=== PATIENT | female | born 1935 | race Two or more races ===

== ENCOUNTER 2020-11-18 04:03 | Day surgery (SDC) | payer OTHER ==
[2020-11-16 12:15] VITALS: BMI 34.2
[2020-11-18 08:14] LABS: HEMATOCRIT 39.3 % (32.4-45.2); HEMOGLOBIN 12.6 GM/dL (10.7-15.3); MCH 28.7 pg (25.7-33.7); MCHC 32.1 g/dl (32.0-36.0); MEAN CELL VOLUME 89.4 fl (80-96); MEAN PLT VOLUME 7.3 fl (7.5-11.1); PLATELET COUNT 277 K/MM3 (134-434); RDW 17.9 % (11.6-15.6); WHITE BLOOD COUNT 7.4 K/mm3 (4.0-10.0)
[2020-11-18 08:28] LABS: INR 1.02 (0.83-1.09); PROTHROMBIN TIME (PATIENT) 12.5 SEC (9.7-13.0)
[2020-11-18 08:33] LABS: ALBUMIN 3.3 g/dl (3.4-5.0); BLOOD UREA NITROGEN 27.5 mg/dL (7-18); CALCIUM 8.1 mg/dL (8.5-10.1)
[2020-11-18 08:37] LABS: BILIRUBIN,TOTAL 0.6 mg/dL (0.2-1); CREATININE 1.4 mg/dL (0.55-1.3); TOT PROT 7.2 g/dl (6.4-8.2)
[2020-11-18] MEDS ORDERED: LIDOCAINE HCL/PF 2% SDV 5ML VIAL ONE (12:32)
[2020-11-18] MEDS ORDERED: PROPOFOL 20 ML ONE (12:32)
[2020-11-18] MEDS ORDERED: MIDAZOLAM HCL 2 MG/2 ML SINGLE DOSE VIAL ONE (12:32)
[2020-11-18] MEDS ORDERED: KETOROLAC TROMETHAMINE 30 MG/1 ML VIAL ONE (12:32)
[2020-11-18] MEDS ORDERED: DEXAMETHASONE SOD PHOSPHATE 4 MG/1 ML VIAL ONE (12:32)
[2020-11-18] MEDS ORDERED: ONDANSETRON 4 MG/2 ML VIAL IVPUSH PRN (13:36)
[2020-11-18] MEDS ORDERED: IBUPROFEN 400 MG TABLET (FP) PO PRN (13:41)
[2020-11-18] MEDS ORDERED: ACETAMINOPHEN 325 MG TABLET (FP) PO PRN (13:41)
[2020-11-18] MEDS ORDERED: LACTATED RINGERS SOLUTION 1,000 ML IV SCH (13:45)
[2020-11-18] MEDS: LABETALOL HCL 5 MG/1 ML (100MG/20 ML VIAL) IVPUSH ONE ×2 (15:00→15:15)
[2020-11-18] MEDS ORDERED: LABETALOL HCL 5 MG/1 ML (100MG/20 ML VIAL) IVPUSH ONE (15:21)
[2020-11-18] MEDS ORDERED: dilTIAZem HCL 125 MG/25 ML - 25 ML VIAL ONE (15:34)
[2020-11-18] MEDS ORDERED: dilTIAZem HCL 50 MG/10 ML - 10 ML VIAL IVPUSH PRN ×2 (15:35→15:54)
[2020-11-18 18:18] VITALS: TEMP 97
[2020-11-18 18:26] VITALS: BP 168/100; PULSE 88
== END 2020-11-18 17:30 | disposition home or self-care (01) ==
LOC: JASU-SURG 04:03
PROVIDERS: ATTEND Specialist
PROC: 0UB98ZX Excision of Uterus, Via Natural or Artificial Opening Endoscopic, Diagnostic (ICD-10-PCS; principal; 2020-11-18 10:00)
PROC: 0UDB7ZX Extraction of Endometrium, Via Natural or Artificial Opening, Diagnostic (ICD-10-PCS; 2020-11-18 10:00)
DX: N95.0 Postmenopausal bleeding (principal); N84.0 Polyp of corpus uteri; E11.9 Type 2 diabetes mellitus without complications
CPT/HCPCS: 36415; 80053; 85027; 85610; 86850; 86900; 86901; 88305-TC; 94760

== ENCOUNTER 2021-02-09 15:25 | Inpatient (IN) | payer OTHER ==
[2021-02-09] MEDS ORDERED: LIDOCAINE 1%/EPI 1:100000 (20 ML MULTI DOSE VIAL) ONE (16:58)
[2021-02-09] MEDS ORDERED: LIDOCAINE HCL 1%, 10 MG/ML (20ML VIAL) ONE (16:58)
[2021-02-09 19:49] LABS: BASO % 1.2 % (0-2.0); EOS % 0.8 % (0-4.5); HEMATOCRIT 42.4 % (32.4-45.2); HEMOGLOBIN 13.9 GM/dL (10.7-15.3); LYMPH % 17.9 % (8-40); MCH 28.8 pg (25.7-33.7); MCHC 32.7 g/dl (32.0-36.0); MEAN PLT VOLUME 7.1 fl (7.5-11.1); MONO % 7.9 % (3.8-10.2); NEUT % 72.2 % (42.8-82.8); PLATELET COUNT 309 10^3/uL (134-434); RBC 4.82 M/mm3 (3.60-5.2); RDW 17.5 % (11.6-15.6); WHITE BLOOD COUNT 9.3 K/mm3 (4.0-10.0)
[2021-02-09 20:01] LABS: INR 2.57 (0.83-1.09); PROTHROMBIN TIME (PATIENT) 30.8 SEC (9.7-13.0)
[2021-02-09 20:18] LABS: BLOOD UREA NITROGEN 23.1 mg/dL (7-18); CALCIUM 8.4 mg/dL (8.5-10.1)
[2021-02-09 20:19] LABS: ALBUMIN 3.2 g/dl (3.4-5.0)
[2021-02-09 20:21] LABS: CREATININE 1.5 mg/dL (0.55-1.3)
[2021-02-09 20:22] LABS: BILIRUBIN,TOTAL 0.5 mg/dL (0.2-1); TOT PROT 7.4 g/dl (6.4-8.2)
[2021-02-10 04:41] VITALS: BMI 33.5
[2021-02-10 07:13] LABS: EOS % 0.9 % (0-4.5); HEMATOCRIT 41.8 % (32.4-45.2); HEMOGLOBIN 13.7 GM/dL (10.7-15.3); LYMPH % 20.3 % (8-40); MCH 28.9 pg (25.7-33.7); MCHC 32.7 g/dl (32.0-36.0); MEAN CELL VOLUME 88.4 fl (80-96); MONO % 9.4 % (3.8-10.2); NEUT % 68.4 % (42.8-82.8); PLATELET COUNT 256 10^3/uL (134-434); RBC 4.72 M/mm3 (3.60-5.2); RDW 17.4 % (11.6-15.6); WHITE BLOOD COUNT 9.6 K/mm3 (4.0-10.0)
[2021-02-10 07:50] LABS: ALBUMIN 3.2 g/dl (3.4-5.0); CALCIUM 8.4 mg/dL (8.5-10.1)
[2021-02-10 07:53] LABS: CREATININE 1.4 mg/dL (0.55-1.3)
[2021-02-10 07:54] LABS: BILIRUBIN,TOTAL 0.6 mg/dL (0.2-1)
[2021-02-10 07:58] LABS: BLOOD UREA NITROGEN 23.3 mg/dL (7-18)
[2021-02-10] MEDS: metoPROLOL SUCCINATE 25 MG TAB.SR.24H (FP) PO SCH (09:16)
[2021-02-10] MEDS: ALLOPURINOL 100 MG TABLET (FP) PO SCH (09:17)
[2021-02-10] MEDS: FUROSEMIDE 20 MG TABLET (FP) PO SCH (09:17)
[2021-02-10] MEDS: FERROUS SO4 325 MG TABLET (FP) PO SCH (09:17)
[2021-02-10] MEDS ORDERED: RIVAROXABAN 20 MG TABLET PO SCH (18:00)
[2021-02-11 07:12] LABS: BASO % 1.2 % (0-2.0); EOS % 1.1 % (0-4.5); HEMATOCRIT 39.9 % (32.4-45.2); HEMOGLOBIN 13.1 GM/dL (10.7-15.3); LYMPH % 19.2 % (8-40); MCHC 32.8 g/dl (32.0-36.0); MEAN CELL VOLUME 88.5 fl (80-96); MEAN PLT VOLUME 7.1 fl (7.5-11.1); MONO % 10.5 % (3.8-10.2); PLATELET COUNT 235 10^3/uL (134-434); RBC 4.51 M/mm3 (3.60-5.2); RDW 17.7 % (11.6-15.6); WHITE BLOOD COUNT 7.7 K/mm3 (4.0-10.0)
[2021-02-11 07:32] LABS: CALCIUM 8.3 mg/dL (8.5-10.1)
[2021-02-11 07:36] LABS: BILIRUBIN,TOTAL 0.5 mg/dL (0.2-1); CREATININE 1.3 mg/dL (0.55-1.3); TOT PROT 6.7 g/dl (6.4-8.2)
[2021-02-11] MEDS: metoPROLOL SUCCINATE 25 MG TAB.SR.24H (FP) PO SCH (10:17)
[2021-02-11] MEDS: PANTOPRAZOLE 40 MG TABLET PO SCH (10:17)
[2021-02-11] MEDS: FERROUS SO4 325 MG TABLET (FP) PO SCH (10:17)
[2021-02-11] MEDS: FUROSEMIDE 20 MG TABLET (FP) PO SCH (10:17)
[2021-02-11] MEDS: ALLOPURINOL 100 MG TABLET (FP) PO SCH (10:18)
[2021-02-11] MEDS: VALSARTAN 80 MG TABLET PO SCH (13:16)
[2021-02-11] MEDS ORDERED: PT OWN MED DRAWER 7, Y5N ONE ×3 (14:33→17:32)
[2021-02-12] MEDS ORDERED: amLODIPine BESYLATE 2.5 MG TABLET (FP) PO ONE (02:15)
[2021-02-12] MEDS: VALSARTAN 80 MG TABLET PO SCH ×2 (05:16→09:13)
[2021-02-12] MEDS: ALLOPURINOL 100 MG TABLET (FP) PO SCH (09:12)
[2021-02-12] MEDS: PANTOPRAZOLE 40 MG TABLET PO SCH (09:13)
[2021-02-12] MEDS: FUROSEMIDE 20 MG TABLET (FP) PO SCH (09:13)
[2021-02-12] MEDS: FERROUS SO4 325 MG TABLET (FP) PO SCH (09:14)
[2021-02-12] MEDS ORDERED: PT OWN MED DRAWER 7, Y5N ONE ×2 (14:06→20:46)
[2021-02-12] MEDS ORDERED: VALSARTAN 80 MG TABLET PO SCH (15:27)
[2021-02-13] MEDS: FERROUS SO4 325 MG TABLET (FP) PO SCH (09:06)
[2021-02-13] MEDS: FUROSEMIDE 20 MG TABLET (FP) PO SCH (09:06)
[2021-02-13] MEDS: ALLOPURINOL 100 MG TABLET (FP) PO SCH (09:06)
[2021-02-13] MEDS: PANTOPRAZOLE 40 MG TABLET PO SCH (09:06)
[2021-02-13 14:40] VITALS: BP 144/71; PULSE 95; TEMP 97.5
[2021-02-13] MEDS ORDERED: POLYETHYLENE GLYCOL (HEALTHYLAX) 3350 17 GM PACKET PO SCH (15:15)
[2021-02-13] MEDS ORDERED: RIVAROXABAN 20 MG TABLET PO SCH (18:00)
== END 2021-02-13 17:26 | disposition home or self-care (01) | DRG 914 ==
LOC: JER 15:25 → JERBED 22:20 → OBSVTOIN 23:39 → J4W 02-10 03:40
PROVIDERS: ADMIT Internal Medicine; ATTEND Internal Medicine
PROC: 0HQ0XZZ Repair Scalp Skin, External Approach (ICD-10-PCS; principal; 2021-02-10)
DX: S09.90XA Unspecified injury of head, initial encounter (principal); N17.9 Acute kidney failure, unspecified; I48.11 Longstanding persistent atrial fibrillation; S01.81XA Laceration without foreign body of other part of head, initial encounter; W01.0XXA Fall on same level from slipping, tripping and stumbling without subsequent striking against object, initial encounter; Y93.89 Activity, other specified; Y92.009 Unspecified place in unspecified non-institutional (private) residence as the place of occurrence of the external cause; Y99.8 Other external cause status; I10 Essential (primary) hypertension; I48.91 Unspecified atrial fibrillation; Z79.01 Long term (current) use of anticoagulants; E78.5 Hyperlipidemia, unspecified; M10.9 Gout, unspecified; D64.9 Anemia, unspecified; G20 Parkinson's disease
CPT/HCPCS: 36415; 70450-TC; 70486-TC; 70551-TC; 72125-TC; 76775-TC; 80053; 82550; 82553; 84484; 85025; 85610; 93005; 93010; 93306-TC; 93880-TC; 97116-GP; 97162-GP; 99285-25; C9803; G0378; U0003; U0005

== ENCOUNTER 2021-09-14 15:25 | Emergency (ER) | payer OTHER ==
[2021-09-14] MEDS ORDERED: SODIUM CHLORIDE 1,000 ML IV SCH (15:45)
[2021-09-14] MEDS ORDERED: levETIRAcetam 500 MG/5 ML INJECTION VIAL IVPB ONE ×2 (15:57→16:13)
[2021-09-14] MEDS ORDERED: LABETALOL HCL 5 MG/1 ML (100MG/20 ML VIAL) IVPUSH ONE (16:05)
[2021-09-14 16:09] VITALS: TEMP 98.9; BMI 35.2
[2021-09-14] MEDS ORDERED: HUM PROTHROMBIN CPLX(PCC)4FACT 1,000 UNIT/40 ML VIAL IV ONE (16:11)
[2021-09-14] MEDS ORDERED: LABETALOL HCL 5 MG/1 ML (200MG/40ML VIAL) IVPB ONE (16:27)
[2021-09-14 16:40] LABS: BASO % 1.2 % (0-2.0); EOS % 1.5 % (0-4.5); HEMATOCRIT 45.6 % (32.4-45.2); HEMOGLOBIN 14.9 GM/dL (10.7-15.3); MCHC 32.7 g/dl (32.0-36.0); MEAN CELL VOLUME 95.1 fl (80-96); MEAN PLT VOLUME 7.6 fl (7.5-11.1); MONO % 12.5 % (3.8-10.2); NEUT % 60.8 % (42.8-82.8); PLATELET COUNT 292 10^3/uL (134-434); RDW 16.6 % (11.6-15.6); WHITE BLOOD COUNT 6.2 K/mm3 (4.0-10.0)
[2021-09-14] MEDS ORDERED: [UNRECOGNIZED DRUG - OTHER] IVPB ONE (17:00)
[2021-09-14] MEDS ORDERED: HUM PROTHROMBIN CPLX IVPB ONE (17:00)
[2021-09-14] MEDS ORDERED: HUM PROTHROMBIN CPLX IVPB SCH (17:00)
[2021-09-14] MEDS ORDERED: [UNRECOGNIZED DRUG - OTHER] IVPB SCH (17:00)
[2021-09-14 17:04] LABS: CHLORIDE 102 mmol/L (98-107); SODIUM 130 mmol/L (136-145)
[2021-09-14 17:07] LABS: ALBUMIN 2.7 g/dl (3.4-5.0); CO2 27 mmol/L (21-32)
[2021-09-14 17:08] LABS: BLOOD UREA NITROGEN 28.2 mg/dL (7-18); GLUCOSE,RANDOM 140 mg/dL (74-106)
[2021-09-14 17:10] LABS: CREATININE 1.4 mg/dL (0.55-1.3)
[2021-09-14 17:11] LABS: CHOLESTEROL 97 mg/dL (50-200); TRIGLYCERIDES 135 mg/dL (0-150)
[2021-09-14 17:12] LABS: LDL CHOLESTEROL (ONLY SJRH) 49 mg/dL (5-100); TOT PROT 7.6 g/dl (6.4-8.2)
[2021-09-14 17:13] LABS: BILIRUBIN,TOTAL 0.8 mg/dL (0.2-1); HDL CHOLESTEROL 33 mg/dL (40-60)
[2021-09-14 17:14] VITALS: BP 140/98; PULSE 103
[2021-09-14 17:14] LABS: ALK PHOS 66 U/L (45-117)
[2021-09-14 17:39] LABS: ANION GAP 1 MMOL/L (8-16); SGOT/AST 97 U/L (15-37); SGPT/ALT 25 U/L (13-61)
== END 2021-09-14 18:00 | disposition short-term general hospital (02) ==
LOC: JER 15:25
PROC: 3E033GC Introduction of Other Therapeutic Substance into Peripheral Vein, Percutaneous Approach (ICD-10-PCS; principal; 2021-09-14)
PROC: 3E033GC Introduction of Other Therapeutic Substance into Peripheral Vein, Percutaneous Approach (ICD-10-PCS; 2021-09-14)
PROC: 3E033GC Introduction of Other Therapeutic Substance into Peripheral Vein, Percutaneous Approach (ICD-10-PCS; 2021-09-14)
PROC: 3E033GC Introduction of Other Therapeutic Substance into Peripheral Vein, Percutaneous Approach (ICD-10-PCS; 2021-09-14)
DX: I61.9 Nontraumatic intracerebral hemorrhage, unspecified (principal)
CPT/HCPCS: 36415; 70450-TC; 80053; 80061; 82550; 82553; 82962; 83036; 84484; 85025; 93005; 93010; 96374; 96375; 99285-25; J7168

== ENCOUNTER 2021-10-13 12:28 | Inpatient (IN) | payer OTHER ==
[2021-10-13 13:58] LABS: ARTERIAL BLD GAS O2 SATURATION 96.9 % (95-98); ARTERIAL BLOOD GAS BASE EXCESS -1.1 mmol/L (-2-2); ARTERIAL BLOOD GAS PO2 84.3 mmHg (80-100); ARTERIAL BLOOD GAS pH 7.458 (7.350-7.450)
[2021-10-13 14:01] LABS: ALLENS TEST POSITIVE
[2021-10-13 14:10] LABS: BASO % 0.5 % (0-2.0); HEMATOCRIT 27.3 % (32.4-45.2); HEMOGLOBIN 8.8 GM/dL (10.7-15.3); LYMPH % 12.7 % (8-40); MCH 33.7 pg (25.7-33.7); MCHC 32.3 g/dl (32.0-36.0); MEAN CELL VOLUME 104.3 fl (80-96); MEAN PLT VOLUME 7.6 fl (7.5-11.1); MONO % 6.9 % (3.8-10.2); NEUT % 79.9 % (42.8-82.8); PLATELET COUNT 333 10^3/uL (134-434); RBC 2.62 M/mm3 (3.60-5.2); RDW 20.7 % (11.6-15.6); WHITE BLOOD COUNT 8.5 K/mm3 (4.0-10.0)
[2021-10-13 14:13] LABS: INR 1.46 (0.83-1.09); PROTHROMBIN TIME (PATIENT) 16.9 SEC (9.7-13.0)
[2021-10-13 14:16] LABS: ACTIVATED PTT 26.7 SECONDS (25.2-36.5)
[2021-10-13 14:19] LABS: CHLORIDE 106 mmol/L (98-107); SODIUM 137 mmol/L (136-145)
[2021-10-13 14:23] LABS: ANION GAP 7 MMOL/L (8-16); BLOOD UREA NITROGEN 63.3 mg/dL (7-18); CO2 25 mmol/L (21-32); GLUCOSE,RANDOM 211 mg/dL (74-106)
[2021-10-13 14:24] LABS: ALBUMIN 2.2 g/dl (3.4-5.0); CALCIUM 7.7 mg/dL (8.5-10.1)
[2021-10-13 14:26] LABS: SGPT/ALT 54 U/L (13-61)
[2021-10-13 14:27] LABS: CREATININE 1.2 mg/dL (0.55-1.3); SGOT/AST 36 U/L (15-37)
[2021-10-13 14:28] LABS: BILIRUBIN,TOTAL 0.7 mg/dL (0.2-1)
[2021-10-13 14:29] LABS: ALK PHOS 54 U/L (45-117)
[2021-10-13] MEDS ORDERED: PANTOPRAZOLE SODIUM 40 MG VIAL IVPUSH ONE (14:54)
[2021-10-13 15:05] LABS: ANISOCYTOSIS 2+; MACROCYTOSIS 2+
[2021-10-13] MEDS ORDERED: SODIUM CHLORIDE 250 ML IV STA (15:29)
[2021-10-13] MEDS ORDERED: PANTOPRAZOLE SODIUM 40 MG VIAL ONE (15:39)
[2021-10-13] MEDS ORDERED: PATIENT'S OWN MEDICATION (NON-FORMULARY) (Acetaminophen [Acetaminophen] 325 MG Capsule) GT PRN (15:53)
[2021-10-13] MEDS: SODIUM CHLORIDE 1,000 ML IV SCH (16:04)
[2021-10-13 16:51] LABS: EPI CELLS 5 /uL (0-25.1); HYALINE CASTS 1 /uL (0-3.1); URINE APPEARANCE CLEAR; URINE BACTERIA 1272 /uL (0-1359); URINE BILIRUBIN NEGATIVE (NEGATIVE); URINE COLOR YELLOW; URINE GLUCOSE (UA) NEGATIVE (NEGATIVE); URINE KETONE NEGATIVE (NEGATIVE); URINE LEUK ESTERASE TRACE (NEGATIVE); URINE NITRITE NEGATIVE (NEGATIVE); URINE PROTEIN TRACE (NEGATIVE); URINE RBC 667 /uL (0-23.9); URINE WBC 37 /uL (0-25.8)
[2021-10-13] MEDS: INSULIN SLIDING SCALE (NOVOLOG) 1 VIAL SQ SCH ×2 (18:30→22:00)
[2021-10-13] MEDS: OXYBUTYNIN CHLORIDE 5 MG TABLET NGT SCH (21:55)
[2021-10-13] MEDS: APIXABAN 5 MG TABLET GT SCH (21:55)
[2021-10-13] MEDS: CARBIDOPA/LEVODOPA 25/100 TABLET (FP) GT SCH (21:55)
[2021-10-13] MEDS: ALLOPURINOL 100 MG TABLET (FP) GT SCH (21:55)
[2021-10-13] MEDS: MUPIROCIN 2% TOPICAL OINTMENT FOR DECOLONIZATION NS SCH (21:56)
[2021-10-13] MEDS: CARVEDILOL 25 MG TABLET (FP) GT SCH (21:56)
[2021-10-13] MEDS ORDERED: APIXABAN 5 MG TABLET GT SCH (22:00)
[2021-10-13] MEDS ORDERED: CHLORHEXIDINE GLUCONATE 4% CLEANSER FOR DECOLONIZATION TP SCH (22:00)
[2021-10-13] MEDS ORDERED: APIXABAN 5 MG TABLET PO SCH (22:00)
[2021-10-13] MEDS ORDERED: CARVEDILOL 25 MG TABLET (FP) GT SCH (22:00)
[2021-10-14] MEDS: CARBIDOPA/LEVODOPA 25/100 TABLET (FP) GT SCH ×3 (05:17→23:16)
[2021-10-14] MEDS: INSULIN SLIDING SCALE (NOVOLOG) 1 VIAL SQ SCH ×4 (06:29→23:17)
[2021-10-14 06:44] LABS: ARTERIAL BLOOD GAS BASE EXCESS -2.4 mmol/L (-2-2); ARTERIAL BLOOD GAS PO2 87.9 mmHg (80-100); ARTERIAL BLOOD GAS pH 7.431 (7.350-7.450)
[2021-10-14 06:45] LABS: ALLENS TEST POSITIVE
[2021-10-14 07:21] LABS: PHOSPHOROUS 3.7 mg/dL (2.5-4.9)
[2021-10-14] MEDS ORDERED: ACETAMINOPHEN 650 MG/20.3 ML ORAL SOLUTION (CUPS) GT PRN (08:47)
[2021-10-14] MEDS: MUPIROCIN 2% TOPICAL OINTMENT FOR DECOLONIZATION NS SCH (09:19)
[2021-10-14] MEDS: CARVEDILOL 25 MG TABLET (FP) GT SCH ×2 (09:21→23:16)
[2021-10-14] MEDS: OXYBUTYNIN CHLORIDE 5 MG TABLET NGT SCH ×2 (09:23→23:16)
[2021-10-14] MEDS: ALLOPURINOL 100 MG TABLET (FP) GT SCH ×2 (09:24→23:16)
[2021-10-14] MEDS ORDERED: PANTOPRAZOLE SODIUM 40 MG VIAL IVPUSH SCH (10:00)
[2021-10-14] MEDS ORDERED: POLYETHYLENE GLYCOL (HEALTHYLAX) 3350 17 GM PACKET PO SCH (10:00)
[2021-10-14] MEDS ORDERED: SENNOSIDES 8.8 MG/5 ML BULK BOTTLE GT SCH (10:00)
[2021-10-14] MEDS ORDERED: DIGOXIN 0.125 MG TABLET GT SCH (10:00)
[2021-10-14] MEDS: APIXABAN 5 MG TABLET GT SCH ×2 (10:37→23:16)
[2021-10-14] MEDS: SODIUM CHLORIDE 1,000 ML IV SCH ×2 (15:47→20:10)
[2021-10-14 16:23] LABS: ALBUMIN 2.2 g/dl (3.4-5.0); BLOOD UREA NITROGEN 55.4 mg/dL (7-18); CALCIUM 7.5 mg/dL (8.5-10.1)
[2021-10-14 16:26] LABS: CREATININE 1.1 mg/dL (0.55-1.3)
[2021-10-14 16:28] LABS: BILIRUBIN,TOTAL 0.8 mg/dL (0.2-1); TOT PROT 6.2 g/dl (6.4-8.2)
[2021-10-14 21:09] LABS: SARS-CoV-2 NAA Not Detected (Not Detected)
[2021-10-15] MEDS: CARBIDOPA/LEVODOPA 25/100 TABLET (FP) GT SCH ×3 (06:57→21:43)
[2021-10-15 07:10] LABS: BASO % 0.6 % (0-2.0); HEMATOCRIT 25.2 % (32.4-45.2); HEMOGLOBIN 8.3 GM/dL (10.7-15.3); LYMPH % 11.8 % (8-40); MCH 34.1 pg (25.7-33.7); MCHC 33.1 g/dl (32.0-36.0); MEAN CELL VOLUME 102.9 fl (80-96); MEAN PLT VOLUME 7.1 fl (7.5-11.1); MONO % 9.7 % (3.8-10.2); NEUT % 77.9 % (42.8-82.8); PLATELET COUNT 298 10^3/uL (134-434); RBC 2.45 M/mm3 (3.60-5.2); RDW 19.9 % (11.6-15.6)
[2021-10-15] MEDS: INSULIN SLIDING SCALE (NOVOLOG) 1 VIAL SQ SCH ×4 (07:11→21:46)
[2021-10-15 07:21] LABS: CALCIUM 7.2 mg/dL (8.5-10.1)
[2021-10-15 07:22] LABS: ALBUMIN 1.9 g/dl (3.4-5.0); BLOOD UREA NITROGEN 47.1 mg/dL (7-18); MAGNESIUM 3.1 mg/dL (1.8-2.4)
[2021-10-15 07:25] LABS: PHOSPHOROUS 3.7 mg/dL (2.5-4.9)
[2021-10-15 07:26] LABS: BILIRUBIN,TOTAL 0.8 mg/dL (0.2-1); TOT PROT 5.3 g/dl (6.4-8.2)
[2021-10-15] MEDS: POLYETHYLENE GLYCOL (HEALTHYLAX) 3350 17 GM PACKET PO SCH (09:34)
[2021-10-15] MEDS: OXYBUTYNIN CHLORIDE 5 MG TABLET NGT SCH ×2 (09:35→21:43)
[2021-10-15] MEDS: CARVEDILOL 25 MG TABLET (FP) GT SCH ×2 (09:35→21:43)
[2021-10-15] MEDS: PANTOPRAZOLE SODIUM 40 MG VIAL IVPUSH SCH (09:35)
[2021-10-15] MEDS: SENNOSIDES 8.8 MG/5 ML BULK BOTTLE GT SCH (09:35)
[2021-10-15] MEDS: APIXABAN 5 MG TABLET GT SCH ×2 (09:35→21:44)
[2021-10-15] MEDS: ALLOPURINOL 100 MG TABLET (FP) GT SCH ×2 (09:35→21:44)
[2021-10-15 10:29] LABS: INR 1.49 (0.83-1.09); PROTHROMBIN TIME (PATIENT) 17.2 SEC (9.7-13.0)
[2021-10-15 10:31] LABS: ACTIVATED PTT 25.8 SECONDS (25.2-36.5)
[2021-10-15] MEDS: SODIUM CHLORIDE 1,000 ML IV SCH ×2 (16:39→21:41)
[2021-10-15] MEDS ORDERED: ROSUVASTATIN CA 5 MG TABLET PO SCH ×2 (22:00)
[2021-10-16] MEDS: INSULIN SLIDING SCALE (NOVOLOG) 1 VIAL SQ SCH ×4 (06:19→21:50)
[2021-10-16] MEDS: CARBIDOPA/LEVODOPA 25/100 TABLET (FP) GT SCH ×3 (06:19→21:46)
[2021-10-16 06:45] LABS: HEMATOCRIT 26.5 % (32.4-45.2); HEMOGLOBIN 8.3 GM/dL (10.7-15.3); MCH 32.9 pg (25.7-33.7); MCHC 31.1 g/dl (32.0-36.0); MEAN CELL VOLUME 105.7 fl (80-96); MEAN PLT VOLUME 7.1 fl (7.5-11.1); PLATELET COUNT 317 10^3/uL (134-434); RBC 2.51 M/mm3 (3.60-5.2); RDW 19.9 % (11.6-15.6); WHITE BLOOD COUNT 4.8 K/mm3 (4.0-10.0)
[2021-10-16 06:50] LABS: CHLORIDE 119 mmol/L (98-107); SODIUM 144 mmol/L (136-145)
[2021-10-16 06:52] LABS: ALBUMIN 1.9 g/dl (3.4-5.0); ANION GAP 7 MMOL/L (8-16); BLOOD UREA NITROGEN 39.2 mg/dL (7-18); CO2 19 mmol/L (21-32); GLUCOSE,RANDOM 226 mg/dL (74-106)
[2021-10-16 06:55] LABS: SGOT/AST 59 U/L (15-37); SGPT/ALT 37 U/L (13-61)
[2021-10-16 06:57] LABS: BILIRUBIN,TOTAL 0.6 mg/dL (0.2-1); TOT PROT 5.4 g/dl (6.4-8.2)
[2021-10-16 06:58] LABS: ALK PHOS 57 U/L (45-117)
[2021-10-16 07:04] LABS: CALCIUM 6.9 mg/dL (8.5-10.1)
[2021-10-16] MEDS: SENNOSIDES 8.8 MG/5 ML BULK BOTTLE GT SCH (10:45)
[2021-10-16] MEDS: PANTOPRAZOLE SODIUM 40 MG VIAL IVPUSH SCH (10:49)
[2021-10-16] MEDS: APIXABAN 5 MG TABLET GT SCH ×2 (10:50→21:46)
[2021-10-16] MEDS: OXYBUTYNIN CHLORIDE 5 MG TABLET NGT SCH ×3 (10:50→21:46)
[2021-10-16] MEDS: amLODIPine BESYLATE 5 MG TABLET (FP) PO SCH (10:50)
[2021-10-16] MEDS: CARVEDILOL 25 MG TABLET (FP) GT SCH ×3 (10:50→21:46)
[2021-10-16] MEDS: ALLOPURINOL 100 MG TABLET (FP) GT SCH ×2 (10:50→21:46)
[2021-10-16] MEDS: POLYETHYLENE GLYCOL (HEALTHYLAX) 3350 17 GM PACKET PO SCH (10:50)
[2021-10-16] MEDS: ACETAMINOPHEN 650 MG/20.3 ML ORAL SOLUTION (CUPS) GT PRN (20:18)
[2021-10-17] MEDS: CARBIDOPA/LEVODOPA 25/100 TABLET (FP) GT SCH ×3 (06:25→21:41)
[2021-10-17] MEDS: INSULIN SLIDING SCALE (NOVOLOG) 1 VIAL SQ SCH ×4 (06:27→21:41)
[2021-10-17] MEDS: PANTOPRAZOLE SODIUM 40 MG VIAL IVPUSH SCH (09:46)
[2021-10-17] MEDS: CARVEDILOL 25 MG TABLET (FP) GT SCH ×2 (09:46→21:41)
[2021-10-17] MEDS: SENNOSIDES 8.8 MG/5 ML BULK BOTTLE GT SCH (09:46)
[2021-10-17] MEDS: APIXABAN 5 MG TABLET GT SCH ×2 (09:46→21:41)
[2021-10-17] MEDS: OXYBUTYNIN CHLORIDE 5 MG TABLET NGT SCH ×2 (09:46→21:41)
[2021-10-17] MEDS: POLYETHYLENE GLYCOL (HEALTHYLAX) 3350 17 GM PACKET PO SCH (09:46)
[2021-10-17] MEDS: amLODIPine BESYLATE 5 MG TABLET (FP) PO SCH (09:46)
[2021-10-17] MEDS: ALLOPURINOL 100 MG TABLET (FP) GT SCH ×2 (09:46→21:41)
[2021-10-18] MEDS: CARBIDOPA/LEVODOPA 25/100 TABLET (FP) GT SCH ×3 (06:39→21:06)
[2021-10-18] MEDS: INSULIN SLIDING SCALE (NOVOLOG) 1 VIAL SQ SCH ×4 (06:39→21:57)
[2021-10-18 08:05] LABS: BASO % 1.3 % (0-2.0); EOS % 0.2 % (0-4.5); HEMATOCRIT 24.1 % (32.4-45.2); HEMOGLOBIN 7.8 GM/dL (10.7-15.3); LYMPH % 21.6 % (8-40); MCH 33.3 pg (25.7-33.7); MCHC 32.4 g/dl (32.0-36.0); MEAN CELL VOLUME 102.7 fl (80-96); MEAN PLT VOLUME 7.4 fl (7.5-11.1); NEUT % 70.9 % (42.8-82.8); PLATELET COUNT 304 10^3/uL (134-434); RBC 2.35 M/mm3 (3.60-5.2); WHITE BLOOD COUNT 5.4 K/mm3 (4.0-10.0)
[2021-10-18 08:12] LABS: BLOOD UREA NITROGEN 44.2 mg/dL (7-18); CALCIUM 7.2 mg/dL (8.5-10.1)
[2021-10-18 08:13] LABS: BILIRUBIN,TOTAL 0.4 mg/dL (0.2-1); TOT PROT 5.7 g/dl (6.4-8.2)
[2021-10-18 08:15] LABS: CREATININE 0.8 mg/dL (0.55-1.3)
[2021-10-18] MEDS: APIXABAN 5 MG TABLET GT SCH ×2 (09:30→21:06)
[2021-10-18] MEDS: amLODIPine BESYLATE 5 MG TABLET (FP) PO SCH (09:30)
[2021-10-18] MEDS: PANTOPRAZOLE SODIUM 40 MG VIAL IVPUSH SCH (09:30)
[2021-10-18] MEDS: CARVEDILOL 25 MG TABLET (FP) GT SCH ×2 (09:30→21:06)
[2021-10-18] MEDS: OXYBUTYNIN CHLORIDE 5 MG TABLET NGT SCH ×2 (09:30→21:06)
[2021-10-18] MEDS: ALLOPURINOL 100 MG TABLET (FP) GT SCH ×2 (09:30→21:06)
[2021-10-18] MEDS: POLYETHYLENE GLYCOL (HEALTHYLAX) 3350 17 GM PACKET PO SCH (09:30)
[2021-10-18] MEDS: SENNOSIDES 8.8 MG/5 ML BULK BOTTLE GT SCH (09:31)
[2021-10-19] MEDS: CARBIDOPA/LEVODOPA 25/100 TABLET (FP) GT SCH ×3 (06:54→22:16)
[2021-10-19] MEDS: INSULIN SLIDING SCALE (NOVOLOG) 1 VIAL SQ SCH ×4 (06:54→22:45)
[2021-10-19 07:27] LABS: BLOOD UREA NITROGEN 50.4 mg/dL (7-18); CALCIUM 7.2 mg/dL (8.5-10.1)
[2021-10-19 07:30] LABS: CREATININE 0.9 mg/dL (0.55-1.3)
[2021-10-19 07:32] LABS: BILIRUBIN,TOTAL 0.5 mg/dL (0.2-1); TOT PROT 5.8 g/dl (6.4-8.2)
[2021-10-19 07:48] LABS: HEMATOCRIT 22.9 % (32.4-45.2); HEMOGLOBIN 7.5 GM/dL (10.7-15.3); MCH 33.1 pg (25.7-33.7); MCHC 32.6 g/dl (32.0-36.0); MEAN CELL VOLUME 101.3 fl (80-96); MEAN PLT VOLUME 7.6 fl (7.5-11.1); PLATELET COUNT 307 10^3/uL (134-434); RBC 2.26 M/mm3 (3.60-5.2); RDW 19.5 % (11.6-15.6); WHITE BLOOD COUNT 5.5 K/mm3 (4.0-10.0)
[2021-10-19] MEDS: amLODIPine BESYLATE 5 MG TABLET (FP) PO SCH (09:35)
[2021-10-19] MEDS: OXYBUTYNIN CHLORIDE 5 MG TABLET NGT SCH ×2 (09:35→22:16)
[2021-10-19] MEDS: APIXABAN 5 MG TABLET GT SCH ×2 (09:35→22:16)
[2021-10-19] MEDS: POLYETHYLENE GLYCOL (HEALTHYLAX) 3350 17 GM PACKET PO SCH (09:35)
[2021-10-19] MEDS: SENNOSIDES 8.8 MG/5 ML BULK BOTTLE GT SCH (09:35)
[2021-10-19] MEDS: ALLOPURINOL 100 MG TABLET (FP) GT SCH ×2 (09:35→22:16)
[2021-10-19] MEDS: CARVEDILOL 25 MG TABLET (FP) GT SCH ×2 (09:35→22:16)
[2021-10-19] MEDS: PANTOPRAZOLE SODIUM 40 MG VIAL IVPUSH SCH (09:35)
[2021-10-19 09:39] LABS: ANISOCYTOSIS 1+; MACROCYTOSIS 1+
[2021-10-20] MEDS: CARBIDOPA/LEVODOPA 25/100 TABLET (FP) GT SCH ×3 (05:58→21:18)
[2021-10-20 06:38] LABS: BASO % 0.8 % (0-2.0); HEMATOCRIT 25.1 % (32.4-45.2); HEMOGLOBIN 8.1 GM/dL (10.7-15.3); LYMPH % 14.5 % (8-40); MCH 32.3 pg (25.7-33.7); MCHC 32.1 g/dl (32.0-36.0); MEAN CELL VOLUME 100.7 fl (80-96); MEAN PLT VOLUME 7.1 fl (7.5-11.1); MONO % 4.3 % (3.8-10.2); NEUT % 80.4 % (42.8-82.8); PLATELET COUNT 302 10^3/uL (134-434); RBC 2.49 M/mm3 (3.60-5.2); RDW 19.6 % (11.6-15.6); WHITE BLOOD COUNT 7.2 K/mm3 (4.0-10.0)
[2021-10-20 06:57] LABS: CALCIUM 7.4 mg/dL (8.5-10.1)
[2021-10-20 06:58] LABS: ALBUMIN 2.1 g/dl (3.4-5.0)
[2021-10-20 07:01] LABS: CREATININE 0.8 mg/dL (0.55-1.3)
[2021-10-20 07:02] LABS: BILIRUBIN,TOTAL 0.4 mg/dL (0.2-1)
[2021-10-20] MEDS: INSULIN SLIDING SCALE (NOVOLOG) 1 VIAL SQ SCH ×4 (07:14→21:33)
[2021-10-20] MEDS: ALLOPURINOL 100 MG TABLET (FP) GT SCH ×2 (10:52→21:18)
[2021-10-20] MEDS: CARVEDILOL 25 MG TABLET (FP) GT SCH ×2 (10:54→21:18)
[2021-10-20] MEDS: OXYBUTYNIN CHLORIDE 5 MG TABLET NGT SCH ×2 (10:54→21:18)
[2021-10-20] MEDS: APIXABAN 5 MG TABLET GT SCH ×2 (10:54→21:18)
[2021-10-20] MEDS: PANTOPRAZOLE SODIUM 40 MG VIAL IVPUSH SCH (10:55)
[2021-10-20] MEDS: POLYETHYLENE GLYCOL (HEALTHYLAX) 3350 17 GM PACKET PO SCH (10:55)
[2021-10-20] MEDS: SENNOSIDES 8.8 MG/5 ML BULK BOTTLE GT SCH (10:55)
[2021-10-20] MEDS: amLODIPine BESYLATE 5 MG TABLET (FP) PO SCH (10:57)
[2021-10-20] MEDS ORDERED: FUROSEMIDE 40 MG/4 ML INJECTABLE VIAL ONE (19:59)
[2021-10-20] MEDS ORDERED: FUROSEMIDE 40 MG/4 ML INJECTABLE VIAL IVPUSH ONE (19:59)
[2021-10-21] MEDS: CARBIDOPA/LEVODOPA 25/100 TABLET (FP) GT SCH ×3 (05:56→21:33)
[2021-10-21] MEDS: INSULIN SLIDING SCALE (NOVOLOG) 1 VIAL SQ SCH ×4 (06:12→22:04)
[2021-10-21 07:08] LABS: HEMATOCRIT 24.4 % (32.4-45.2); HEMOGLOBIN 7.9 GM/dL (10.7-15.3); LYMPH % 20.3 % (8-40); MCH 32.7 pg (25.7-33.7); MCHC 32.2 g/dl (32.0-36.0); MEAN CELL VOLUME 101.5 fl (80-96); MEAN PLT VOLUME 7.5 fl (7.5-11.1); MONO % 5.3 % (3.8-10.2); NEUT % 73.4 % (42.8-82.8); PLATELET COUNT 305 10^3/uL (134-434); RBC 2.41 M/mm3 (3.60-5.2); RDW 19.7 % (11.6-15.6); WHITE BLOOD COUNT 6.6 K/mm3 (4.0-10.0)
[2021-10-21 07:25] LABS: ALBUMIN 2.2 g/dl (3.4-5.0); BLOOD UREA NITROGEN 58.5 mg/dL (7-18)
[2021-10-21 07:30] LABS: BILIRUBIN,TOTAL 0.5 mg/dL (0.2-1); TOT PROT 5.9 g/dl (6.4-8.2)
[2021-10-21] MEDS: amLODIPine BESYLATE 5 MG TABLET (FP) PO SCH (09:39)
[2021-10-21] MEDS: OXYBUTYNIN CHLORIDE 5 MG TABLET NGT SCH ×2 (09:39→21:33)
[2021-10-21] MEDS: PANTOPRAZOLE SODIUM 40 MG VIAL IVPUSH SCH (09:39)
[2021-10-21] MEDS: ALLOPURINOL 100 MG TABLET (FP) GT SCH ×2 (09:39→21:33)
[2021-10-21] MEDS: CARVEDILOL 25 MG TABLET (FP) GT SCH ×2 (09:39→21:33)
[2021-10-21] MEDS: POLYETHYLENE GLYCOL (HEALTHYLAX) 3350 17 GM PACKET PO SCH (09:40)
[2021-10-21] MEDS: SENNOSIDES 8.8 MG/5 ML BULK BOTTLE GT SCH (09:40)
[2021-10-21 14:59] VITALS: BMI 33.4
[2021-10-21] MEDS: APIXABAN 5 MG TABLET GT SCH ×2 (15:03→21:33)
[2021-10-21] MEDS: FUROSEMIDE 40 MG/4 ML INJECTABLE VIAL IVPUSH SCH (21:33)
[2021-10-22] MEDS: INSULIN SLIDING SCALE (NOVOLOG) 1 VIAL SQ SCH ×3 (06:48→17:26)
[2021-10-22] MEDS: CARBIDOPA/LEVODOPA 25/100 TABLET (FP) GT SCH ×3 (06:48→23:31)
[2021-10-22 08:07] LABS: HEMATOCRIT 23.2 % (32.4-45.2); HEMOGLOBIN 7.6 GM/dL (10.7-15.3); MCHC 32.8 g/dl (32.0-36.0); MEAN CELL VOLUME 100.8 fl (80-96); MEAN PLT VOLUME 7.4 fl (7.5-11.1); PLATELET COUNT 267 10^3/uL (134-434); RBC 2.31 M/mm3 (3.60-5.2); RDW 19.8 % (11.6-15.6); WHITE BLOOD COUNT 5.3 K/mm3 (4.0-10.0)
[2021-10-22 08:14] LABS: ALBUMIN 2.2 g/dl (3.4-5.0); CALCIUM 8.3 mg/dL (8.5-10.1)
[2021-10-22 08:15] LABS: BLOOD UREA NITROGEN 59.6 mg/dL (7-18)
[2021-10-22 08:18] LABS: CREATININE 0.9 mg/dL (0.55-1.3)
[2021-10-22 08:19] LABS: BILIRUBIN,TOTAL 0.4 mg/dL (0.2-1)
[2021-10-22 08:56] LABS: ANISOCYTOSIS 1+; MACROCYTOSIS 1+
[2021-10-22] MEDS: CARVEDILOL 25 MG TABLET (FP) GT SCH ×2 (09:36→23:31)
[2021-10-22] MEDS: ALLOPURINOL 100 MG TABLET (FP) GT SCH ×2 (09:37→23:31)
[2021-10-22] MEDS: POLYETHYLENE GLYCOL (HEALTHYLAX) 3350 17 GM PACKET PO SCH (09:37)
[2021-10-22] MEDS: amLODIPine BESYLATE 5 MG TABLET (FP) PO SCH (09:37)
[2021-10-22] MEDS: FUROSEMIDE 40 MG/4 ML INJECTABLE VIAL IVPUSH SCH (09:37)
[2021-10-22] MEDS: OXYBUTYNIN CHLORIDE 5 MG TABLET NGT SCH ×2 (09:37→23:31)
[2021-10-22] MEDS: ACETAMINOPHEN 650 MG/20.3 ML ORAL SOLUTION (CUPS) GT PRN (09:38)
[2021-10-22] MEDS: SENNOSIDES 8.8 MG/5 ML BULK BOTTLE GT SCH (09:39)
[2021-10-22] MEDS: PANTOPRAZOLE SODIUM 40 MG VIAL IVPUSH SCH (09:40)
[2021-10-22] MEDS: APIXABAN 5 MG TABLET GT SCH ×2 (09:40→21:49)
[2021-10-23] MEDS: INSULIN SLIDING SCALE (NOVOLOG) 1 VIAL SQ SCH ×5 (00:06→22:53)
[2021-10-23] MEDS: CARBIDOPA/LEVODOPA 25/100 TABLET (FP) GT SCH ×3 (06:56→21:25)
[2021-10-23 06:59] LABS: BASO % 1.1 % (0-2.0); EOS % 0.2 % (0-4.5); HEMATOCRIT 26.6 % (32.4-45.2); MCH 33.6 pg (25.7-33.7); MCHC 33.6 g/dl (32.0-36.0); MEAN PLT VOLUME 7.2 fl (7.5-11.1); MONO % 6.9 % (3.8-10.2); NEUT % 64.8 % (42.8-82.8); PLATELET COUNT 301 10^3/uL (134-434); RBC 2.66 M/mm3 (3.60-5.2); RDW 19.1 % (11.6-15.6); WHITE BLOOD COUNT 5.3 K/mm3 (4.0-10.0)
[2021-10-23 07:28] LABS: CALCIUM 8.2 mg/dL (8.5-10.1)
[2021-10-23 07:29] LABS: ALBUMIN 2.2 g/dl (3.4-5.0); BLOOD UREA NITROGEN 52.7 mg/dL (7-18)
[2021-10-23 07:32] LABS: CREATININE 0.9 mg/dL (0.55-1.3)
[2021-10-23 07:33] LABS: BILIRUBIN,TOTAL 0.5 mg/dL (0.2-1)
[2021-10-23 07:34] LABS: TOT PROT 6.3 g/dl (6.4-8.2)
[2021-10-23] MEDS: FUROSEMIDE 40 MG/4 ML INJECTABLE VIAL IVPUSH SCH (09:29)
[2021-10-23] MEDS: PANTOPRAZOLE SODIUM 40 MG VIAL IVPUSH SCH (09:29)
[2021-10-23] MEDS: OXYBUTYNIN CHLORIDE 5 MG TABLET NGT SCH ×2 (09:29→21:25)
[2021-10-23] MEDS: CARVEDILOL 25 MG TABLET (FP) GT SCH ×2 (09:29→21:25)
[2021-10-23] MEDS: amLODIPine BESYLATE 5 MG TABLET (FP) PO SCH (09:30)
[2021-10-23] MEDS: ALLOPURINOL 100 MG TABLET (FP) GT SCH ×2 (09:30→21:25)
[2021-10-23] MEDS: APIXABAN 5 MG TABLET GT SCH ×2 (09:45→21:25)
[2021-10-23] MEDS: SENNOSIDES 8.8 MG/5 ML BULK BOTTLE GT SCH (09:45)
[2021-10-23] MEDS: POLYETHYLENE GLYCOL (HEALTHYLAX) 3350 17 GM PACKET PO SCH (09:45)
[2021-10-24] MEDS: INSULIN SLIDING SCALE (NOVOLOG) 1 VIAL SQ SCH ×4 (06:17→22:52)
[2021-10-24] MEDS: CARBIDOPA/LEVODOPA 25/100 TABLET (FP) GT SCH ×3 (07:09→22:37)
[2021-10-24] MEDS: FUROSEMIDE 40 MG/4 ML INJECTABLE VIAL IVPUSH SCH (09:11)
[2021-10-24] MEDS: POLYETHYLENE GLYCOL (HEALTHYLAX) 3350 17 GM PACKET PO SCH (09:12)
[2021-10-24] MEDS: APIXABAN 5 MG TABLET GT SCH ×2 (09:12→22:37)
[2021-10-24] MEDS: ALLOPURINOL 100 MG TABLET (FP) GT SCH ×2 (09:12→22:37)
[2021-10-24] MEDS: SENNOSIDES 8.8 MG/5 ML BULK BOTTLE GT SCH (09:12)
[2021-10-24] MEDS: amLODIPine BESYLATE 5 MG TABLET (FP) PO SCH (09:12)
[2021-10-24] MEDS: PANTOPRAZOLE SODIUM 40 MG VIAL IVPUSH SCH (09:12)
[2021-10-24] MEDS: CARVEDILOL 25 MG TABLET (FP) GT SCH ×2 (09:12→22:37)
[2021-10-24] MEDS: OXYBUTYNIN CHLORIDE 5 MG TABLET NGT SCH ×2 (09:12→22:36)
[2021-10-24] MEDS: VALSARTAN 40 MG TABLET GT SCH (14:55)
[2021-10-25] MEDS: CARBIDOPA/LEVODOPA 25/100 TABLET (FP) GT SCH ×3 (06:36→23:23)
[2021-10-25] MEDS: INSULIN SLIDING SCALE (NOVOLOG) 1 VIAL SQ SCH ×4 (06:42→23:23)
[2021-10-25 08:21] LABS: BLOOD UREA NITROGEN 63.8 mg/dL (7-18); CALCIUM 8.4 mg/dL (8.5-10.1)
[2021-10-25 08:22] LABS: ALBUMIN 2.3 g/dl (3.4-5.0)
[2021-10-25 08:25] LABS: BILIRUBIN,TOTAL 0.4 mg/dL (0.2-1); TOT PROT 6.3 g/dl (6.4-8.2)
[2021-10-25 08:31] LABS: BASO % 1.1 % (0-2.0); EOS % 0.3 % (0-4.5); HEMATOCRIT 25.6 % (32.4-45.2); HEMOGLOBIN 8.5 GM/dL (10.7-15.3); LYMPH % 24.3 % (8-40); MCH 33.1 pg (25.7-33.7); MCHC 33.3 g/dl (32.0-36.0); MEAN CELL VOLUME 99.7 fl (80-96); MEAN PLT VOLUME 7.5 fl (7.5-11.1); MONO % 7.7 % (3.8-10.2); NEUT % 66.6 % (42.8-82.8); PLATELET COUNT 333 10^3/uL (134-434); RBC 2.56 M/mm3 (3.60-5.2); RDW 19.3 % (11.6-15.6)
[2021-10-25] MEDS: CARVEDILOL 25 MG TABLET (FP) GT SCH ×2 (10:48→23:23)
[2021-10-25] MEDS: VALSARTAN 40 MG TABLET GT SCH (10:48)
[2021-10-25] MEDS: SENNOSIDES 8.8 MG/5 ML BULK BOTTLE GT SCH (10:49)
[2021-10-25] MEDS: APIXABAN 5 MG TABLET GT SCH ×2 (10:49→23:23)
[2021-10-25] MEDS: OXYBUTYNIN CHLORIDE 5 MG TABLET NGT SCH ×2 (10:49→23:23)
[2021-10-25] MEDS: FUROSEMIDE 40 MG/4 ML INJECTABLE VIAL IVPUSH SCH (10:49)
[2021-10-25] MEDS: POLYETHYLENE GLYCOL (HEALTHYLAX) 3350 17 GM PACKET PO SCH (10:49)
[2021-10-25] MEDS: amLODIPine BESYLATE 5 MG TABLET (FP) PO SCH (10:49)
[2021-10-25] MEDS: ALLOPURINOL 100 MG TABLET (FP) GT SCH ×2 (10:49→23:42)
[2021-10-25] MEDS: PANTOPRAZOLE SODIUM 40 MG VIAL IVPUSH SCH (10:49)
[2021-10-25] MEDS ORDERED: ATORVASTATIN CA 10 MG TABLET (FP) GT SCH (22:00)
[2021-10-26] MEDS: CARBIDOPA/LEVODOPA 25/100 TABLET (FP) GT SCH ×3 (06:40→22:54)
[2021-10-26] MEDS: INSULIN SLIDING SCALE (NOVOLOG) 1 VIAL SQ SCH ×4 (06:41→23:06)
[2021-10-26] MEDS ORDERED: ACETAMINOPHEN 650 MG/20.3 ML ORAL SOLUTION (CUPS) GT PRN ×2 (08:19→08:42)
[2021-10-26] MEDS ORDERED: INSULIN (NOVOLOG) ASPART 100 UNITS/ML 10ML VIAL ONE (10:58)
[2021-10-26] MEDS: POLYETHYLENE GLYCOL (HEALTHYLAX) 3350 17 GM PACKET PO SCH (11:08)
[2021-10-26] MEDS: FUROSEMIDE 40 MG/4 ML INJECTABLE VIAL IVPUSH SCH (11:09)
[2021-10-26] MEDS: VALSARTAN 40 MG TABLET GT SCH (11:10)
[2021-10-26] MEDS: PANTOPRAZOLE SODIUM 40 MG VIAL IVPUSH SCH (11:10)
[2021-10-26] MEDS: CARVEDILOL 25 MG TABLET (FP) GT SCH ×2 (11:10→22:54)
[2021-10-26] MEDS: amLODIPine BESYLATE 5 MG TABLET (FP) PO SCH (11:10)
[2021-10-26] MEDS: OXYBUTYNIN CHLORIDE 5 MG TABLET NGT SCH ×2 (11:10→22:54)
[2021-10-26] MEDS: SENNOSIDES 8.8 MG/5 ML BULK BOTTLE GT SCH (11:11)
[2021-10-26] MEDS: ALLOPURINOL 100 MG TABLET (FP) GT SCH ×2 (11:12→22:53)
[2021-10-26] MEDS: APIXABAN 5 MG TABLET GT SCH ×2 (11:14→22:54)
[2021-10-27] MEDS: CARBIDOPA/LEVODOPA 25/100 TABLET (FP) GT SCH ×3 (06:32→22:15)
[2021-10-27] MEDS: INSULIN SLIDING SCALE (NOVOLOG) 1 VIAL SQ SCH ×4 (06:35→22:16)
[2021-10-27] MEDS: ALLOPURINOL 100 MG TABLET (FP) GT SCH ×2 (09:55→22:15)
[2021-10-27] MEDS: FUROSEMIDE 40 MG/4 ML INJECTABLE VIAL IVPUSH SCH (09:55)
[2021-10-27] MEDS: PANTOPRAZOLE SODIUM 40 MG VIAL IVPUSH SCH (09:56)
[2021-10-27] MEDS: VALSARTAN 40 MG TABLET GT SCH (09:56)
[2021-10-27] MEDS: OXYBUTYNIN CHLORIDE 5 MG TABLET NGT SCH ×2 (09:57→22:16)
[2021-10-27] MEDS: amLODIPine BESYLATE 5 MG TABLET (FP) PO SCH (09:57)
[2021-10-27] MEDS: APIXABAN 5 MG TABLET GT SCH ×2 (09:57→22:15)
[2021-10-27] MEDS: CARVEDILOL 25 MG TABLET (FP) GT SCH ×2 (09:57→22:15)
[2021-10-27] MEDS: SENNOSIDES 8.8 MG/5 ML BULK BOTTLE GT SCH (09:58)
[2021-10-27] MEDS: POLYETHYLENE GLYCOL (HEALTHYLAX) 3350 17 GM PACKET PO SCH (15:33)
[2021-10-28] MEDS ORDERED: INSULIN (NOVOLOG) ASPART 100 UNITS/ML 10ML VIAL ONE (06:03)
[2021-10-28] MEDS: INSULIN SLIDING SCALE (NOVOLOG) 1 VIAL SQ SCH ×2 (06:34→11:44)
[2021-10-28] MEDS: CARBIDOPA/LEVODOPA 25/100 TABLET (FP) GT SCH ×2 (06:35→13:26)
[2021-10-28 10:13] LABS: SARS-CoV-2 NAA Not Detected (Not Detected)
[2021-10-28] MEDS: FUROSEMIDE 40 MG/4 ML INJECTABLE VIAL IVPUSH SCH (10:58)
[2021-10-28] MEDS: VALSARTAN 40 MG TABLET GT SCH (10:58)
[2021-10-28] MEDS: OXYBUTYNIN CHLORIDE 5 MG TABLET NGT SCH (10:58)
[2021-10-28] MEDS: POLYETHYLENE GLYCOL (HEALTHYLAX) 3350 17 GM PACKET PO SCH (10:58)
[2021-10-28] MEDS: APIXABAN 5 MG TABLET GT SCH (10:58)
[2021-10-28] MEDS: CARVEDILOL 25 MG TABLET (FP) GT SCH (10:58)
[2021-10-28] MEDS: amLODIPine BESYLATE 5 MG TABLET (FP) PO SCH (10:58)
[2021-10-28] MEDS: PANTOPRAZOLE SODIUM 40 MG VIAL IVPUSH SCH (10:58)
[2021-10-28] MEDS: ALLOPURINOL 100 MG TABLET (FP) GT SCH (10:59)
[2021-10-28] MEDS: SENNOSIDES 8.8 MG/5 ML BULK BOTTLE GT SCH (10:59)
[2021-10-28 14:49] VITALS: BP 124/53; PULSE 58; TEMP 98.4
== END 2021-10-28 15:35 | DRG 64 ==
LOC: JER 12:28 → JERBED 13:45 → JICU 17:40 → J2W 10-14 18:44 → J7W 10-25 21:18
PROVIDERS: ADMIT Internal Medicine; ATTEND Internal Medicine
DX: I63.512 Cerebral infarction due to unspecified occlusion or stenosis of left middle cerebral artery (principal); I50.33 Acute on chronic diastolic (congestive) heart failure; R53.2 Functional quadriplegia; I24.8 Other forms of acute ischemic heart disease; G81.91 Hemiplegia, unspecified affecting right dominant side; I48.11 Longstanding persistent atrial fibrillation; K21.9 Gastro-esophageal reflux disease without esophagitis; E78.5 Hyperlipidemia, unspecified; I10 Essential (primary) hypertension; D64.9 Anemia, unspecified; G20 Parkinson's disease; R74.01 Elevation of levels of liver transaminase levels; R29.729 NIHSS score 29; M10.9 Gout, unspecified; E11.9 Type 2 diabetes mellitus without complications; R31.9 Hematuria, unspecified
CPT/HCPCS: 36415; 36600; 70450-TC; 70496-TC; 70498-TC; 71045-TC-FY; 80053; 80061; 80162; 81003; 82272; 82728; 82803; 82962; 83036; 83540; 83550; 83735; 84100; 84436; 84443; 84484; 85025; 85027; 85045; 85610; 85730; 86850; 86900; 86901; 87040; 87045; 87046; 87086; 87186; 87324; 87449; 93005; 93010; 93306-TC; 93880-TC; 93970-TC; 97162-GP; 99291; C9803-CS; Q9967; U0003; U0005

== ENCOUNTER 2021-10-31 17:12 | Inpatient (IN) | payer OTHER ==
[2021-10-31 18:04] LABS: HEMATOCRIT 19.1 % (32.4-45.2); MCH 32.1 pg (25.7-33.7); MCHC 32.7 g/dl (32.0-36.0); MEAN CELL VOLUME 98.2 fl (80-96); MEAN PLT VOLUME 7.3 fl (7.5-11.1); PLATELET COUNT 288 10^3/uL (134-434); RBC 1.95 M/mm3 (3.60-5.2); RDW 18.5 % (11.6-15.6); WHITE BLOOD COUNT 7.6 K/mm3 (4.0-10.0)
[2021-10-31 18:09] LABS: HEMOGLOBIN 6.3 GM/dL (10.7-15.3)
[2021-10-31 18:23] LABS: CHLORIDE 103 mmol/L (98-107); SODIUM 136 mmol/L (136-145)
[2021-10-31 18:26] LABS: ANION GAP 8 MMOL/L (8-16); CALCIUM 7.6 mg/dL (8.5-10.1); CO2 25 mmol/L (21-32); GLUCOSE,RANDOM 201 mg/dL (74-106)
[2021-10-31 18:29] LABS: SGPT/ALT 21 U/L (13-61)
[2021-10-31 18:30] LABS: CREATININE 1.4 mg/dL (0.55-1.3); SGOT/AST 37 U/L (15-37)
[2021-10-31 18:31] LABS: BILIRUBIN,TOTAL 0.6 mg/dL (0.2-1); TOT PROT 5.8 g/dl (6.4-8.2)
[2021-10-31 18:32] LABS: ALK PHOS 57 U/L (45-117)
[2021-10-31 18:39] LABS: ALBUMIN 1.8 g/dl (3.4-5.0)
[2021-10-31 19:03] LABS: URINE APPEARANCE CLEAR; URINE BILIRUBIN NEGATIVE (NEGATIVE); URINE COLOR YELLOW; URINE GLUCOSE (UA) NEGATIVE (NEGATIVE); URINE KETONE NEGATIVE (NEGATIVE); URINE LEUK ESTERASE NEGATIVE (NEGATIVE); URINE NITRITE NEGATIVE (NEGATIVE); URINE PROTEIN NEGATIVE (NEGATIVE); URINE UROBILINOGEN 0.2 mg/dL (0.2-1.0)
[2021-10-31 19:06] LABS: ACTIVATED PTT 28.2 SECONDS (25.2-36.5); INR 1.2 (0.83-1.09); PROTHROMBIN TIME (PATIENT) 13.8 SEC (9.7-13.0)
[2021-10-31 19:37] LABS: ANISOCYTOSIS 1+; MACROCYTOSIS 1+; OVALOCYTE 1+
[2021-10-31] MEDS ORDERED: SODIUM CHLORIDE 0.9% 500 ML INFUS.BAG IV ONE (19:42)
[2021-10-31] MEDS ORDERED: SODIUM CHLORIDE 1,000 ML IV SCH (23:45)
[2021-11-01 01:26] LABS: BASO % 0.8 % (0-2.0); EOS % 0.3 % (0-4.5); HEMATOCRIT 26.8 % (32.4-45.2); HEMOGLOBIN 9.2 GM/dL (10.7-15.3); MCH 31.2 pg (25.7-33.7); MCHC 34.4 g/dl (32.0-36.0); MEAN CELL VOLUME 90.9 fl (80-96); MEAN PLT VOLUME 7.5 fl (7.5-11.1); MONO % 9.3 % (3.8-10.2); NEUT % 64.6 % (42.8-82.8); PLATELET COUNT 275 10^3/uL (134-434); RBC 2.95 M/mm3 (3.60-5.2); RDW 19.6 % (11.6-15.6); WHITE BLOOD COUNT 8.2 K/mm3 (4.0-10.0)
[2021-11-01] MEDS ORDERED: CARBIDOPA/LEVODOPA 25/100 TABLET (FP) ONE ×2 (06:49→13:26)
[2021-11-01] MEDS: CARBIDOPA/LEVODOPA 25/100 TABLET (FP) GT SCH ×2 (07:00→13:51)
[2021-11-01 08:14] LABS: BASO % 0.8 % (0-2.0); HEMATOCRIT 28.5 % (32.4-45.2); HEMOGLOBIN 9.6 GM/dL (10.7-15.3); LYMPH % 26.7 % (8-40); MCH 31.1 pg (25.7-33.7); MCHC 33.8 g/dl (32.0-36.0); MEAN PLT VOLUME 7.8 fl (7.5-11.1); MONO % 9.6 % (3.8-10.2); NEUT % 62.9 % (42.8-82.8); PLATELET COUNT 294 10^3/uL (134-434); RDW 20.7 % (11.6-15.6); WHITE BLOOD COUNT 8.2 K/mm3 (4.0-10.0)
[2021-11-01 08:31] LABS: CHLORIDE 111 mmol/L (98-107); SODIUM 142 mmol/L (136-145)
[2021-11-01 08:33] LABS: ALBUMIN 2.1 g/dl (3.4-5.0); ANION GAP 7 MMOL/L (8-16); CALCIUM 7.4 mg/dL (8.5-10.1); CO2 24 mmol/L (21-32)
[2021-11-01 08:34] LABS: GLUCOSE,RANDOM 159 mg/dL (74-106)
[2021-11-01 08:36] LABS: SGPT/ALT 29 U/L (13-61)
[2021-11-01 08:37] LABS: CREATININE 1.2 mg/dL (0.55-1.3); SGOT/AST 57 U/L (15-37)
[2021-11-01 08:38] LABS: BILIRUBIN,TOTAL 0.8 mg/dL (0.2-1); TOT PROT 6.4 g/dl (6.4-8.2)
[2021-11-01 08:39] LABS: ALK PHOS 63 U/L (45-117)
[2021-11-01 08:45] LABS: BLOOD UREA NITROGEN 110.1 mg/dL (7-18)
[2021-11-01 08:57] LABS: ANISOCYTOSIS 1+; MACROCYTOSIS 1+
[2021-11-01] MEDS ORDERED: PANTOPRAZOLE 40 MG TABLET ONE (09:10)
[2021-11-01] MEDS ORDERED: CHOLECALCIFEROL (VIT D3) 1,000 UNIT (25 MCG) TABLET ONE (09:11)
[2021-11-01] MEDS ORDERED: CARVEDILOL 25 MG TABLET (FP) ONE (09:11)
[2021-11-01] MEDS: OXYBUTYNIN CHLORIDE 5 MG TABLET NGT SCH (09:35)
[2021-11-01] MEDS: CARVEDILOL 25 MG TABLET (FP) GT SCH ×2 (09:35→23:56)
[2021-11-01] MEDS: PANTOPRAZOLE 40 MG TABLET PO SCH (09:35)
[2021-11-01] MEDS: CHOLECALCIFEROL (VIT D3) 1,000 UNIT (25 MCG) TABLET GT SCH (09:36)
[2021-11-01] MEDS: ALLOPURINOL 100 MG TABLET (FP) GT SCH (09:36)
[2021-11-01] MEDS ORDERED: SODIUM CHLORIDE 500 ML IV STA (14:38)
[2021-11-01] MEDS: SODIUM CHLORIDE 0.45% 1,000 ML IV SCH (15:30)
[2021-11-01 23:22] LABS: BASO % 0.8 % (0-2.0); EOS % 0.5 % (0-4.5); HEMATOCRIT 22.6 % (32.4-45.2); HEMOGLOBIN 7.7 GM/dL (10.7-15.3); MCH 31.2 pg (25.7-33.7); MEAN CELL VOLUME 91.7 fl (80-96); MEAN PLT VOLUME 7.3 fl (7.5-11.1); MONO % 9.6 % (3.8-10.2); NEUT % 67.1 % (42.8-82.8); PLATELET COUNT 246 10^3/uL (134-434); RBC 2.46 M/mm3 (3.60-5.2); RDW 20.6 % (11.6-15.6); WHITE BLOOD COUNT 6.8 K/mm3 (4.0-10.0)
[2021-11-01 23:26] LABS: ARTERIAL BLD GAS O2 SATURATION 98.3 % (95-98); ARTERIAL BLOOD GAS BASE EXCESS -2.9 mmol/L (-2-2); ARTERIAL BLOOD GAS PO2 113.5 mmHg (80-100); ARTERIAL BLOOD GAS pH 7.432 (7.350-7.450)
[2021-11-01 23:35] LABS: ALLENS TEST POSITIVE
[2021-11-01] MEDS: SENNOSIDES 8.8 MG/5 ML BULK BOTTLE GT SCH (23:56)
[2021-11-02] MEDS ORDERED: CALCIUM GLUCONATE IN NACL 1 GM/50 ML BAG IVPB ONE (00:39)
[2021-11-02] MEDS ORDERED: FUROSEMIDE 40 MG/4 ML INJECTABLE VIAL IVPUSH ONE (00:40)
[2021-11-02] MEDS: INSULIN (LEVEMIR) 100 UNITS/ML UNITS SQ SCH ×2 (04:01→23:25)
[2021-11-02] MEDS: ATORVASTATIN CA 10 MG TABLET (FP) GT SCH ×2 (04:04→23:26)
[2021-11-02] MEDS: CARBIDOPA/LEVODOPA 25/100 TABLET (FP) GT SCH ×4 (06:40→23:26)
[2021-11-02] MEDS: ALLOPURINOL 100 MG TABLET (FP) GT SCH (10:50)
[2021-11-02] MEDS: PANTOPRAZOLE 40 MG TABLET PO SCH (10:50)
[2021-11-02] MEDS: OXYBUTYNIN CHLORIDE 5 MG TABLET NGT SCH (10:50)
[2021-11-02] MEDS: CHOLECALCIFEROL (VIT D3) 1,000 UNIT (25 MCG) TABLET GT SCH (10:50)
[2021-11-02] MEDS: CARVEDILOL 25 MG TABLET (FP) GT SCH ×2 (10:51→23:25)
[2021-11-02] MEDS: SODIUM CHLORIDE 0.45% 1,000 ML IV SCH (21:40)
[2021-11-02 22:17] LABS: EOS % 0.1 % (0-4.5); HEMATOCRIT 27.9 % (32.4-45.2); HEMOGLOBIN 9.3 GM/dL (10.7-15.3); LYMPH % 30.3 % (8-40); MCH 30.2 pg (25.7-33.7); MCHC 33.3 g/dl (32.0-36.0); MEAN CELL VOLUME 90.9 fl (80-96); MEAN PLT VOLUME 7.6 fl (7.5-11.1); NEUT % 57.6 % (42.8-82.8); PLATELET COUNT 227 10^3/uL (134-434); RBC 3.07 M/mm3 (3.60-5.2); RDW 17.5 % (11.6-15.6); WHITE BLOOD COUNT 6.2 K/mm3 (4.0-10.0)
[2021-11-02 22:21] LABS: INR 1.11 (0.83-1.09); PROTHROMBIN TIME (PATIENT) 12.8 SEC (9.7-13.0)
[2021-11-02 22:24] LABS: ACTIVATED PTT 22.3 SECONDS (25.2-36.5)
[2021-11-02 22:36] LABS: CALCIUM 7.2 mg/dL (8.5-10.1)
[2021-11-02 22:37] LABS: ALBUMIN 1.8 g/dl (3.4-5.0); MAGNESIUM 2.8 mg/dL (1.8-2.4)
[2021-11-02 22:41] LABS: TOT PROT 5.5 g/dl (6.4-8.2)
[2021-11-02 22:49] LABS: BILIRUBIN,TOTAL 0.5 mg/dL (0.2-1); BLOOD UREA NITROGEN 68.6 mg/dL (7-18)
[2021-11-02] MEDS: SENNOSIDES 8.8 MG/5 ML BULK BOTTLE GT SCH (23:25)
[2021-11-03] MEDS: CARBIDOPA/LEVODOPA 25/100 TABLET (FP) GT SCH ×3 (06:34→23:39)
[2021-11-03 06:56] LABS: BASO % 1.1 % (0-2.0); EOS % 0.6 % (0-4.5); HEMATOCRIT 24.8 % (32.4-45.2); HEMOGLOBIN 8.5 GM/dL (10.7-15.3); LYMPH % 32.1 % (8-40); MCH 31.3 pg (25.7-33.7); MCHC 34.4 g/dl (32.0-36.0); MEAN CELL VOLUME 90.9 fl (80-96); MEAN PLT VOLUME 7.1 fl (7.5-11.1); MONO % 13.8 % (3.8-10.2); NEUT % 52.4 % (42.8-82.8); PLATELET COUNT 203 10^3/uL (134-434); RBC 2.72 M/mm3 (3.60-5.2); RDW 17.6 % (11.6-15.6)
[2021-11-03 07:08] LABS: CALCIUM 7.6 mg/dL (8.5-10.1)
[2021-11-03 07:09] LABS: ALBUMIN 1.7 g/dl (3.4-5.0); BLOOD UREA NITROGEN 55.5 mg/dL (7-18)
[2021-11-03 07:12] LABS: CREATININE 0.9 mg/dL (0.55-1.3)
[2021-11-03 07:13] LABS: BILIRUBIN,TOTAL 0.5 mg/dL (0.2-1); TOT PROT 5.2 g/dl (6.4-8.2)
[2021-11-03] MEDS: CARVEDILOL 25 MG TABLET (FP) GT SCH (10:49)
[2021-11-03] MEDS ORDERED: FAMOTIDINE 40 MG/5 ML ORAL SUSPENSION PO SCH (11:15)
[2021-11-03] MEDS ORDERED: SODIUM CHLORIDE 0.45% 1,000 ML IV SCH (11:31)
[2021-11-03] MEDS: FAMOTIDINE 40 MG/5 ML ORAL SUSPENSION GT SCH ×2 (12:05→22:22)
[2021-11-03] MEDS: OXYBUTYNIN CHLORIDE 5 MG TABLET NGT SCH (12:05)
[2021-11-03] MEDS: ALLOPURINOL 100 MG TABLET (FP) GT SCH (12:05)
[2021-11-03 12:10] VITALS: BMI 34.3
[2021-11-03] MEDS: PANTOPRAZOLE 40 MG TABLET PO SCH (14:11)
[2021-11-03] MEDS ORDERED: MEGESTROL ACETATE 400 MG/10 ML UNIT DOSE CUP GT SCH (22:00)
[2021-11-03] MEDS: ATORVASTATIN CA 10 MG TABLET (FP) GT SCH (22:14)
[2021-11-03] MEDS: INSULIN (LEVEMIR) 100 UNITS/ML UNITS SQ SCH (22:20)
[2021-11-03] MEDS: MEGESTROL ACETATE 400 MG/10 ML UNIT DOSE CUP GT SCH (22:21)
[2021-11-03] MEDS: INSULIN SLIDING SCALE (NOVOLOG) 1 VIAL SQ SCH (22:21)
[2021-11-03] MEDS: SENNOSIDES 8.8 MG/5 ML BULK BOTTLE GT SCH (22:22)
[2021-11-03] MEDS ORDERED: DEXTROSE 5%-0.45% SALINE 1,000 ML IV SCH (23:30)
[2021-11-03] MEDS: CARVEDILOL 3.125 MG TABLET (FP) GT SCH (23:39)
[2021-11-04] MEDS: CARBIDOPA/LEVODOPA 25/100 TABLET (FP) GT SCH ×3 (07:01→22:10)
[2021-11-04] MEDS: MEGESTROL ACETATE 400 MG/10 ML UNIT DOSE CUP GT SCH ×3 (07:01→22:09)
[2021-11-04] MEDS: INSULIN SLIDING SCALE (NOVOLOG) 1 VIAL SQ SCH ×4 (07:02→22:09)
[2021-11-04 09:28] LABS: HEMATOCRIT 22.5 % (32.4-45.2); HEMOGLOBIN 7.4 GM/dL (10.7-15.3); MCH 30.7 pg (25.7-33.7); MEAN CELL VOLUME 92.8 fl (80-96); MEAN PLT VOLUME 7.2 fl (7.5-11.1); PLATELET COUNT 194 10^3/uL (134-434); RBC 2.42 M/mm3 (3.60-5.2); RDW 18.3 % (11.6-15.6)
[2021-11-04 09:57] LABS: CALCIUM 7.6 mg/dL (8.5-10.1)
[2021-11-04 09:58] LABS: ALBUMIN 1.6 g/dl (3.4-5.0); BLOOD UREA NITROGEN 39.2 mg/dL (7-18)
[2021-11-04 10:01] LABS: CREATININE 0.8 mg/dL (0.55-1.3)
[2021-11-04 10:03] LABS: BILIRUBIN,TOTAL 0.6 mg/dL (0.2-1)
[2021-11-04] MEDS: FAMOTIDINE 40 MG/5 ML ORAL SUSPENSION GT SCH ×2 (10:28→22:09)
[2021-11-04] MEDS: CHOLECALCIFEROL (VIT D SOLUTION) 400 UNIT/1 ML DROPS GT SCH (10:28)
[2021-11-04] MEDS: OXYBUTYNIN CHLORIDE 5 MG TABLET NGT SCH (10:29)
[2021-11-04] MEDS: CARVEDILOL 3.125 MG TABLET (FP) GT SCH ×2 (10:29→22:08)
[2021-11-04] MEDS: ALLOPURINOL 100 MG TABLET (FP) GT SCH (10:29)
[2021-11-04] MEDS: DEXTROSE 5%-0.45% SALINE 1,000 ML IV SCH (11:57)
[2021-11-04 12:55] LABS: ANISOCYTOSIS 2+; MACROCYTOSIS 0; OVALOCYTE 2+; TEAR DROP CELLS 1+
[2021-11-04] MEDS ORDERED: cefTRIAXone SODIUM 1 GM VIAL ONE (13:44)
[2021-11-04] MEDS ORDERED: DEXTROSE 5%-WATER - 50 ML IVPB ONE (13:44)
[2021-11-04] MEDS: CEFTRIAXONE 1 GM in DEXTROSE 5%-WATER - 50 ML IVPB SCH (13:59)
[2021-11-04] MEDS: COLLAGENASE CLOSTRIDIUM HIST. 30 GRAMS TUBE TP SCH (18:38)
[2021-11-04] MEDS: ATORVASTATIN CA 10 MG TABLET (FP) GT SCH (22:08)
[2021-11-04] MEDS: SENNOSIDES 8.8 MG/5 ML BULK BOTTLE GT SCH (22:10)
[2021-11-05] MEDS: MEGESTROL ACETATE 400 MG/10 ML UNIT DOSE CUP GT SCH ×3 (06:25→22:38)
[2021-11-05] MEDS: CARBIDOPA/LEVODOPA 25/100 TABLET (FP) GT SCH ×3 (06:25→22:38)
[2021-11-05] MEDS: INSULIN SLIDING SCALE (NOVOLOG) 1 VIAL SQ SCH ×4 (06:34→22:51)
[2021-11-05 07:57] LABS: CALCIUM 7.3 mg/dL (8.5-10.1)
[2021-11-05 07:58] LABS: ALBUMIN 1.9 g/dl (3.4-5.0); BLOOD UREA NITROGEN 36.7 mg/dL (7-18)
[2021-11-05 08:01] LABS: CREATININE 0.9 mg/dL (0.55-1.3)
[2021-11-05 08:03] LABS: BILIRUBIN,TOTAL 0.4 mg/dL (0.2-1)
[2021-11-05 08:27] LABS: BASO % 0.8 % (0-2.0); EOS % 0.2 % (0-4.5); HEMATOCRIT 24.4 % (32.4-45.2); HEMOGLOBIN 8.4 GM/dL (10.7-15.3); LYMPH % 20.6 % (8-40); MCH 30.9 pg (25.7-33.7); MCHC 34.6 g/dl (32.0-36.0); MEAN CELL VOLUME 89.2 fl (80-96); MEAN PLT VOLUME 7.4 fl (7.5-11.1); MONO % 9.8 % (3.8-10.2); NEUT % 68.6 % (42.8-82.8); PLATELET COUNT 188 10^3/uL (134-434); RBC 2.73 M/mm3 (3.60-5.2); RDW 17.8 % (11.6-15.6); WHITE BLOOD COUNT 6.6 K/mm3 (4.0-10.0)
[2021-11-05] MEDS ORDERED: cefTRIAXone SODIUM 1 GM VIAL ONE (10:45)
[2021-11-05] MEDS ORDERED: DEXTROSE 5%-WATER - 50 ML IVPB ONE (10:48)
[2021-11-05] MEDS: CEFTRIAXONE 1 GM in DEXTROSE 5%-WATER - 50 ML IVPB SCH (10:52)
[2021-11-05] MEDS: CARVEDILOL 3.125 MG TABLET (FP) GT SCH ×2 (10:52→22:38)
[2021-11-05] MEDS: CHOLECALCIFEROL (VIT D SOLUTION) 400 UNIT/1 ML DROPS GT SCH (10:53)
[2021-11-05] MEDS: COLLAGENASE CLOSTRIDIUM HIST. 30 GRAMS TUBE TP SCH (10:54)
[2021-11-05] MEDS: ALLOPURINOL 100 MG TABLET (FP) GT SCH (10:59)
[2021-11-05] MEDS: DEXTROSE 5%-0.45% SALINE 1,000 ML IV SCH (12:32)
[2021-11-05] MEDS: OXYBUTYNIN CHLORIDE 5 MG TABLET NGT SCH (13:13)
[2021-11-05] MEDS: FAMOTIDINE 40 MG/5 ML ORAL SUSPENSION GT SCH ×2 (13:14→22:38)
[2021-11-05] MEDS: SENNOSIDES 8.8 MG/5 ML BULK BOTTLE GT SCH (22:38)
[2021-11-05] MEDS: ATORVASTATIN CA 10 MG TABLET (FP) GT SCH (22:38)
[2021-11-06] MEDS: MEGESTROL ACETATE 400 MG/10 ML UNIT DOSE CUP GT SCH ×3 (05:23→22:56)
[2021-11-06] MEDS: CARBIDOPA/LEVODOPA 25/100 TABLET (FP) GT SCH ×3 (05:23→22:54)
[2021-11-06] MEDS: INSULIN SLIDING SCALE (NOVOLOG) 1 VIAL SQ SCH ×4 (06:02→22:57)
[2021-11-06] MEDS ORDERED: DEXTROSE 5%-WATER - 50 ML IVPB ONE (09:10)
[2021-11-06] MEDS ORDERED: cefTRIAXone SODIUM 1 GM VIAL ONE (09:10)
[2021-11-06] MEDS: ALLOPURINOL 100 MG TABLET (FP) GT SCH (10:38)
[2021-11-06] MEDS: CEFTRIAXONE 1 GM in DEXTROSE 5%-WATER - 50 ML IVPB SCH (10:39)
[2021-11-06] MEDS: CARVEDILOL 3.125 MG TABLET (FP) GT SCH ×2 (10:39→22:54)
[2021-11-06] MEDS: OXYBUTYNIN CHLORIDE 5 MG TABLET NGT SCH (10:40)
[2021-11-06] MEDS: FAMOTIDINE 40 MG/5 ML ORAL SUSPENSION GT SCH ×2 (10:43→22:56)
[2021-11-06] MEDS: CHOLECALCIFEROL (VIT D SOLUTION) 400 UNIT/1 ML DROPS GT SCH (10:45)
[2021-11-06] MEDS: COLLAGENASE CLOSTRIDIUM HIST. 30 GRAMS TUBE TP SCH (10:46)
[2021-11-06 12:55] LABS: HEMATOCRIT 20.6 % (32.4-45.2); MCH 30.3 pg (25.7-33.7); MCHC 33.8 g/dl (32.0-36.0); MEAN CELL VOLUME 89.8 fl (80-96); MEAN PLT VOLUME 7.1 fl (7.5-11.1); PLATELET COUNT 198 10^3/uL (134-434); RBC 2.29 M/mm3 (3.60-5.2); RDW 18.7 % (11.6-15.6); WHITE BLOOD COUNT 7.4 K/mm3 (4.0-10.0)
[2021-11-06 13:45] LABS: ANISOCYTOSIS 0; HELMET CELLS 0; HOWELL-JOLLY BODIES 0; MACROCYTOSIS 0; OVALOCYTE 0; ROULEAU 0; SICKELED CELLS 0; TARGET CELLS 0; TEAR DROP CELLS 0; TOXIC GRANULATION 0
[2021-11-06 13:49] LABS: ALBUMIN 1.8 g/dl (3.4-5.0); BLOOD UREA NITROGEN 34.4 mg/dL (7-18); CALCIUM 7.2 mg/dL (8.5-10.1)
[2021-11-06 13:52] LABS: CREATININE 0.9 mg/dL (0.55-1.3)
[2021-11-06 13:54] LABS: BILIRUBIN,TOTAL 0.6 mg/dL (0.2-1); TOT PROT 4.9 g/dl (6.4-8.2)
[2021-11-06] MEDS: ATORVASTATIN CA 10 MG TABLET (FP) GT SCH (22:54)
[2021-11-06] MEDS: SENNOSIDES 8.8 MG/5 ML BULK BOTTLE GT SCH (22:57)
[2021-11-07] MEDS: MEGESTROL ACETATE 400 MG/10 ML UNIT DOSE CUP GT SCH ×3 (07:10→21:36)
[2021-11-07] MEDS: CARBIDOPA/LEVODOPA 25/100 TABLET (FP) GT SCH ×3 (07:10→21:37)
[2021-11-07] MEDS: INSULIN SLIDING SCALE (NOVOLOG) 1 VIAL SQ SCH ×4 (07:15→23:28)
[2021-11-07] MEDS ORDERED: cefTRIAXone SODIUM 1 GM VIAL ONE (08:38)
[2021-11-07] MEDS ORDERED: DEXTROSE 5%-WATER - 50 ML IVPB ONE (08:39)
[2021-11-07] MEDS: CARVEDILOL 3.125 MG TABLET (FP) GT SCH ×3 (10:24→22:00)
[2021-11-07] MEDS: CEFTRIAXONE 1 GM in DEXTROSE 5%-WATER - 50 ML IVPB SCH (10:24)
[2021-11-07] MEDS: ALLOPURINOL 100 MG TABLET (FP) GT SCH (10:24)
[2021-11-07] MEDS: OXYBUTYNIN CHLORIDE 5 MG TABLET NGT SCH (10:26)
[2021-11-07] MEDS: FAMOTIDINE 40 MG/5 ML ORAL SUSPENSION GT SCH (10:26)
[2021-11-07] MEDS: CHOLECALCIFEROL (VIT D SOLUTION) 400 UNIT/1 ML DROPS GT SCH (10:31)
[2021-11-07] MEDS: COLLAGENASE CLOSTRIDIUM HIST. 30 GRAMS TUBE TP SCH (10:32)
[2021-11-07 12:14] LABS: HEMATOCRIT 15.8 % (32.4-45.2); MCH 30.5 pg (25.7-33.7); MEAN CELL VOLUME 92.5 fl (80-96); PLATELET COUNT 145 10^3/uL (134-434); RBC 1.71 M/mm3 (3.60-5.2); RDW 18.5 % (11.6-15.6); WHITE BLOOD COUNT 8.2 K/mm3 (4.0-10.0)
[2021-11-07 12:29] LABS: HEMOGLOBIN 5.2 GM/dL (10.7-15.3)
[2021-11-07 12:46] LABS: CALCIUM 7.3 mg/dL (8.5-10.1)
[2021-11-07 12:47] LABS: ALBUMIN 1.6 g/dl (3.4-5.0); BLOOD UREA NITROGEN 37.4 mg/dL (7-18)
[2021-11-07 12:52] LABS: BILIRUBIN,TOTAL 0.3 mg/dL (0.2-1); TOT PROT 4.9 g/dl (6.4-8.2)
[2021-11-07] MEDS ORDERED: ACETAMINOPHEN 325 MG TABLET (FP) PO PRN (17:13)
[2021-11-07] MEDS ORDERED: ACETAMINOPHEN 650 MG/20.3 ML ORAL SOLUTION (CUPS) PO PRN (17:30)
[2021-11-07] MEDS ORDERED: ACETAMINOPHEN 650 MG/20.3 ML ORAL SOLUTION (CUPS) PEG PRN (17:31)
[2021-11-07] MEDS: ATORVASTATIN CA 10 MG TABLET (FP) GT SCH (21:35)
[2021-11-07] MEDS: SENNOSIDES 8.8 MG/5 ML BULK BOTTLE GT SCH (21:36)
[2021-11-07 23:02] LABS: BASO % 0.4 % (0-2.0); EOS % 0.1 % (0-4.5); HEMATOCRIT 26.2 % (32.4-45.2); HEMOGLOBIN 8.9 GM/dL (10.7-15.3); LYMPH % 10.7 % (8-40); MCH 30.5 pg (25.7-33.7); MCHC 34.1 g/dl (32.0-36.0); MEAN CELL VOLUME 89.5 fl (80-96); MEAN PLT VOLUME 6.6 fl (7.5-11.1); MONO % 2.6 % (3.8-10.2); NEUT % 86.2 % (42.8-82.8); PLATELET COUNT 204 10^3/uL (134-434); RBC 2.92 M/mm3 (3.60-5.2); RDW 16.3 % (11.6-15.6); WHITE BLOOD COUNT 5.8 K/mm3 (4.0-10.0)
[2021-11-07] MEDS ORDERED: RAPID SEQUENCE INTUBATION KIT NR ONE (23:15)
[2021-11-07 23:21] LABS: ALBUMIN 1.7 g/dl (3.4-5.0); BLOOD UREA NITROGEN 42.2 mg/dL (7-18); CALCIUM 7.4 mg/dL (8.5-10.1)
[2021-11-07 23:24] LABS: CREATININE 1.1 mg/dL (0.55-1.3)
[2021-11-07 23:26] LABS: BILIRUBIN,TOTAL 0.7 mg/dL (0.2-1); TOT PROT 5.3 g/dl (6.4-8.2)
[2021-11-07] MEDS ORDERED: FUROSEMIDE 40 MG/4 ML INJECTABLE VIAL IVPUSH ONE (23:28)
[2021-11-07] MEDS ORDERED: ACETAMINOPHEN 1000 MG/100 ML BAG IVPB PRN (23:32)
[2021-11-07] MEDS ORDERED: VASOPRESSIN 20 UNITS/ML VIAL IV ONE (23:34)
[2021-11-07] MEDS ORDERED: NOREPINEPHRINE BITARTRATE 4 MG/4 ML ML IV ONE (23:38)
[2021-11-07] MEDS ORDERED: PIPERACILLIN/TAZOB 3.375 GM 3.375 GM in DEXTROSE 5%-WATER - 50 ML IVPB SCH (23:45)
[2021-11-07] MEDS ORDERED: NOREPINEPHRINE BITARTRATE 16,000 MCG in SODIUM CHLORIDE 484 ML IV SCH (23:45)
[2021-11-08] MEDS ORDERED: SODIUM CHLORIDE 2,395 ML IV ONE (00:02)
[2021-11-08] MEDS: FAMOTIDINE 40 MG/5 ML ORAL SUSPENSION GT SCH (00:05)
[2021-11-08] MEDS ORDERED: MIDAZOLAM HCL 2 MG/2 ML SINGLE DOSE VIAL IVPUSH ONE (00:28)
[2021-11-08] MEDS ORDERED: MIDAZOLAM HCL 2 MG/2 ML SINGLE DOSE VIAL IVPUSH PRN (00:31)
[2021-11-08 00:52] LABS: ARTERIAL BLD GAS O2 SATURATION 92.2 % (95-98); ARTERIAL BLOOD GAS BASE EXCESS -8.4 mmol/L (-2-2); ARTERIAL BLOOD GAS PO2 65.1 mmHg (80-100); ARTERIAL BLOOD GAS pH 7.351 (7.350-7.450)
[2021-11-08 00:54] LABS: ALLENS TEST POSITIVE; VENT MODE A/C
[2021-11-08 00:55] LABS: VENT RATE 12
[2021-11-08] MEDS ORDERED: DEXTROSE 5%-NORMAL SALINE 1,000 ML IV SCH (01:15)
[2021-11-08] MEDS ORDERED: LACTATED RINGERS SOLUTION 1,000 ML/1,000 ML INFUS.BAG IV STA ×3 (01:28→05:15)
[2021-11-08] MEDS ORDERED: MIDAZOLAM IN 0.9 % SOD.CHLORID 100 MG/100 ML PLAST..BAG IVPB SCH (01:45)
[2021-11-08] MEDS ORDERED: VANCOMYCIN PREMIX 1.5 GM 1,500 MG/300 ML BAG IVPB ONE (02:00)
[2021-11-08 02:43] VITALS: PULSE 111
[2021-11-08] MEDS ORDERED: EPINEPHrine 1:10,000 (P-F SYR) 1 MG/10 ML DISP.SYRIN ONE ×2 (05:20→06:06)
[2021-11-08] MEDS ORDERED: CARBIDOPA/LEVODOPA 25/100 TABLET (FP) GT SCH (06:00)
[2021-11-08] MEDS ORDERED: MEGESTROL ACETATE 400 MG/10 ML UNIT DOSE CUP GT SCH (06:00)
[2021-11-08] MEDS ORDERED: MORPHINE SULFATE/0.9% NACL/PF 100 MG/100 ML BAG IVPB SCH (06:15)
[2021-11-08 06:49] VITALS: BP 102/84; TEMP 98.3
[2021-11-08] MEDS ORDERED: INSULIN SLIDING SCALE (NOVOLOG) 1 VIAL SQ SCH (07:00)
[2021-11-08] MEDS: VASOPRESSIN 40 UNITS/100 ML BAG IV SCH ×2 (07:08→07:09)
[2021-11-08] MEDS ORDERED: FAMOTIDINE 40 MG/5 ML ORAL SUSPENSION GT SCH (10:00)
[2021-11-08] MEDS ORDERED: MUPIROCIN 2% TOPICAL OINTMENT FOR DECOLONIZATION NS SCH (10:00)
[2021-11-08] MEDS ORDERED: COLLAGENASE CLOSTRIDIUM HIST. 30 GRAMS TUBE TP SCH (10:00)
[2021-11-08] MEDS ORDERED: CARVEDILOL 3.125 MG TABLET (FP) GT SCH (10:00)
[2021-11-08] MEDS ORDERED: OXYBUTYNIN CHLORIDE 5 MG TABLET NGT SCH (10:00)
[2021-11-08] MEDS ORDERED: CHOLECALCIFEROL (VIT D SOLUTION) 400 UNIT/1 ML DROPS GT SCH (10:00)
[2021-11-08] MEDS ORDERED: ALLOPURINOL 100 MG TABLET (FP) GT SCH (10:00)
[2021-11-08] MEDS ORDERED: VANCOMYCIN 1 GM/200 ML PREMIX BAG IVPB SCH (14:00)
[2021-11-08] MEDS ORDERED: PIPERACILLIN/TAZOB 3.375 GM 3.375 GM in DEXTROSE 5%-WATER - 50 ML IVPB SCH (18:00)
[2021-11-08] MEDS ORDERED: CHLORHEXIDINE GLUCONATE 4% CLEANSER FOR DECOLONIZATION TP SCH (22:00)
[2021-11-08] MEDS ORDERED: ATORVASTATIN CA 10 MG TABLET (FP) GT SCH (22:00)
[2021-11-08] MEDS ORDERED: SENNOSIDES 8.8 MG/5 ML BULK BOTTLE GT SCH (22:00)
[2021-11-09] MEDS ORDERED: VANCOMYCIN 1 GM/200 ML PREMIX BAG IVPB SCH (14:00)
== END 2021-11-08 08:35 | disposition expired | DRG 811 ==
LOC: JER 17:12 → JERBED 19:28 → J4W 11-01 23:12 → JICU 11-07 23:30
PROVIDERS: ADMIT Internal Medicine; ATTEND Internal Medicine
PROC: 30233N1 Transfusion of Nonautologous Red Blood Cells into Peripheral Vein, Percutaneous Approach (ICD-10-PCS; principal; 2021-10-31)
PROC: 30233L1 Transfusion of Nonautologous Fresh Plasma into Peripheral Vein, Percutaneous Approach (ICD-10-PCS; 2021-11-02)
PROC: 30233K1 Transfusion of Nonautologous Frozen Plasma into Peripheral Vein, Percutaneous Approach (ICD-10-PCS; 2021-11-02)
PROC: 5A1935Z Respiratory Ventilation, Less than 24 Consecutive Hours (ICD-10-PCS; 2021-11-08)
PROC: 0BH17EZ Insertion of Endotracheal Airway into Trachea, Via Natural or Artificial Opening (ICD-10-PCS; 2021-11-08)
PROC: 02HV33Z Insertion of Infusion Device into Superior Vena Cava, Percutaneous Approach (ICD-10-PCS; 2021-11-08)
PROC: B548ZZA Ultrasonography of Superior Vena Cava, Guidance (ICD-10-PCS; 2021-11-08)
DX: D62 Acute posthemorrhagic anemia (principal); R53.2 Functional quadriplegia; J96.01 Acute respiratory failure with hypoxia; J69.0 Pneumonitis due to inhalation of food and vomit; A41.9 Sepsis, unspecified organism; N17.9 Acute kidney failure, unspecified; I69.351 Hemiplegia and hemiparesis following cerebral infarction affecting right dominant side; I48.19 Other persistent atrial fibrillation; Z79.01 Long term (current) use of anticoagulants; M10.9 Gout, unspecified; K21.9 Gastro-esophageal reflux disease without esophagitis; E78.5 Hyperlipidemia, unspecified; D64.9 Anemia, unspecified; Z86.718 Personal history of other venous thrombosis and embolism; E66.9 Obesity, unspecified; Z93.1 Gastrostomy status; G20 Parkinson's disease; E88.09 Other disorders of plasma-protein metabolism, not elsewhere classified; Z68.34 Body mass index [BMI] 34.0-34.9, adult
CPT/HCPCS: 31500; 36415; 36430; 36600; 71045-TC-FY; 76856-TC; 80053; 81003; 82272; 82436; 82570; 82803; 82962; 83735; 84133; 84300; 84484; 85025; 85027; 85610; 85730; 86850; 86900; 86901; 86922; 87086; 87186; 93005; 93010; 94002; 99285-25; C9803-CS; J3490; P9017; P9058; U0003; U0005